=== PATIENT | male | born 1970 | race Caucasian/White ===

== ENCOUNTER 2019-02-12 22:52 | Emergency (ER) | payer OTHER ==
[~2019-02-12] VITALS: Ht 172.7 cm; Wt 91.6 kg
[~2019-02-12 22:52] MED LIST: CHOLESTEROL MED; ENOXAPARIN30 MG/0.3; HYDROCODON-ACE1 EAC7 PO; LINEZOLID600 MG PO; NICOTINE TRANSD14 M1 TD; NORCO 10-325 T1 EACH PO; PAIN & FEVER325 MG PO; TIROSINT112 MCG PO; ZOCOR 20 MG TAB20 M1 PO
[2019-02-12] MEDS ORDERED: SYNTHROID125 MC1 PO (23:10)
[2019-02-12 23:26] LABS: BASOPHILS 1.2 % (0.0-2.0); EOSINOPHILS 3.3 % (0.0-3.0); HEMATOCRIT 45.4 % (42.0-52.0); HEMOGLOBIN 15.4 gm/dL (14.0-18.0); LYMPHOCYTES 25.4 % (24.0-44.0); MCH 31.8 pg (26.0-34.0); MCV 93.4 fL (80.0-100.0); MONOCYTES 6.2 % (1.0-8.0); PLATELET COUNT 243 thou/uL (150-400); POLYS 63.9 % (36.0-66.0); RBC 4.86 mil/uL (4.50-6.00); RDW 14.3 % (10.5-14.5)
[2019-02-12 23:36] LABS: ANION GAP 13 mmol/L (7-16); BUN 13 mg/dL (7-18); CALCIUM 8.7 mg/dL (8.5-10.1); CHLORIDE 98 mmol/L (98-107); CO2 23 mmol/L (21-32); CREATININE 1.1 mg/dL (0.7-1.3); GLUCOSE 128 mg/dL (74-106); POTASSIUM 3.1 mmol/L (3.5-5.1); SODIUM 134 mmol/L (136-145)
[2019-02-12 23:47] LABS: ALBUMIN 3.8 g/dL (3.4-5.0); SGOT 33 U/L (15-37); SGPT 31 U/L (30-65); TOTAL BILIRUBIN 0.7 mg/dL (<0.1-1.0); TOTAL PROTEIN 7.8 g/dL (6.4-8.2); TROPONIN-I <0.06 ng/mL (<0.06)
[2019-02-12] MEDS ORDERED: ROBAXIN500 MG PO (23:55)
[2019-02-12] MEDS ORDERED: NAPROSYN500 MG PO (23:55)
[2019-02-13 00:11] VITALS: BP 135/87
--- NOTE | 2019-02-13 08:23 | EKG ---
[place] [address] [place] [address] ELECTROCARDIOGRAM REPORT Name: RAVENGAYATHRI Angulo Room #: DEP Cyn#: [id number] ������������������ Admission: 02/12/19 ������������������ Attend Phys: Discharge: 02/13/19 ������������������ Date of : 66 Report #: [id number] ����������������������������������������������������������������� [id number] THIS REPORT FOR: //name// [facility] ED Test Date: 2019-02-12 Test Time: 23:09:30 Pat Name: GAYATHRI CARBAJAL Department: Room: Gender: [employer]: : 1970 Requested By: Mehrdad Boyd Order Number: [id number] MD: Luis Myers Measurements Intervals [place] Rate: 81 P: 44 [place]: 139 QRS: 22 QRSD: 61 T: QT: 355 QTc: 412 Interpretive Statements Sinus rhythm Nonspecific ST and T wave abnormality Compared to ECG 03/21/2016 05:05:44 Nonspecific change in the ST and T-wave segments Sinus tachycardia no longer present Electronically Signed On 02-13-2019 8:23:16 CDT by Luis Myers [email or web address] ��������������������������������������������� <ELECTRONICALLY SIGNED> ���������������������������������������� By: Luis Myers MD, MERGED WITH [facility] ��������������������������������������������� 02/13/19822 08 Luis Myers MD, MERGED WITH [facility] /EPI
== END 2019-02-13 00:11 | disposition home or self-care (01) ==
LOC: ER 22:52
PROVIDERS: Emergency Medicine
DX: M54.12 Radiculopathy, cervical region (principal); F17.210 Nicotine dependence, cigarettes, uncomplicated; Z91.018 Allergy to other foods; Z98.890 Other specified postprocedural states; Z88.5 Allergy status to narcotic agent; Z88.8 Allergy status to other drugs, medicaments and biological substances; Z88.1 Allergy status to other antibiotic agents